=== PATIENT | female | born 1995 | race Caucasian/White ===

== ENCOUNTER 2018-05-06 05:53 | Day surgery (SDC) | payer MEDICAID ==
[2018-05-06] MEDS ORDERED: DIPRIVAN 200 MG/20 ML IV ONE (05:54)
[2018-05-06] MEDS ORDERED: Lactated Ringers 1,000 ML IV SCH (06:30)
[2018-05-06 07:53] VITALS: BP 115/69; PULSE 87; O2SAT 98
--- NOTE | 2018-05-06 07:55 | OP ---
SURGERY DATE/TIME: 05/06/2018 0700 PREOPERATIVE DIAGNOSIS: Epigastric abdominal pain. POSTOPERATIVE DIAGNOSIS: Suspect delayed gastric emptying. PROCEDURE: EGD. SURGEON: David Cross M.D. ANESTHESIA: MAC by Osmany Coffey CRNA. ESTIMATED BLOOD LOSS: None. SPECIMENS: None. DESCRIPTION OF PROCEDURE: After informed written consent was obtained, the patient was taken to the endoscopy suite. She underwent monitored anesthesia and a bite block was inserted. The endoscope was inserted into the posterior oropharynx and under direct visualization the esophagus was traversed. The esophageal mucosa had a normal appearance free of lesions or defects. The gastroesophageal junction appeared normal upon entering the stomach. The gastric mucosa had a normal rugated appearance free of lesions or defect. There were retained food particles in the stomach. The pylorus was traversed and the first and second portions of the duodenum were within normal limits. There were no obvious ulcerations or evidence of inflammation. Upon withdrawal from the pylorus the patient began to wretch therefore the procedure was discontinued at that time. Upon withdrawal there were no obvious mucosal abnormalities. Suction was used and there were no obvious signs of aspiration or other abnormalities during the exam. I discussed the results with the patient's family to follow up with Dr. Burr in consideration for possible gastric emptying study.
== END 2018-05-06 08:04 | disposition home or self-care (01) ==
LOC: SDC 05:53
PROVIDERS: ATTEND Family Medicine
DX: K30 Functional dyspepsia (principal)
CPT/HCPCS: 84703; J2704

== ENCOUNTER 2021-03-21 21:35 | Emergency (ER) | payer OTHER ==
[2021-03-21] MEDS ORDERED: Augmentin 875-125 Tablet PO ONE (21:58)
[2021-03-21] MEDS ORDERED: TYLENOL 325 MG PO ONE (21:59)
[2021-03-21] MEDS ORDERED: TYLENOL 325 MG ONE (22:01)
[2021-03-21] MEDS ORDERED: Augmentin 875-125 Tablet ONE (22:01)
--- NOTE | 2021-03-21 22:02 | ERPHSYRPT ---
- History of Present Illness Time Seen by Provider: 03/21/21 21:40 Source: patient Exam Limitations: no limitations Patient Subjective Stated Complaint: rt ear pain and some sob and I feel stopped up Triage Nursing Assessment: pt c/o rt ear pain. Informed EMS that she felt a little sob with hx of asthma. O2 sats were 98% on EMS arrival but they gave albuterol tx in route. O2 sats 100% on rm air at this time. Pt c/o nose feeling stopped up. Pt is not in any distress at this time, lung clear, resp normal and unlabored. No cough noted. Physician History: Patient is a 25-year-old female presents to our ED via EMS for evaluation of right ear pain. Patient admits to history of otitis media which requires antibiotic therapy. Patient states she has a URI. She has nasal congestion. Patient also has a history of asthma and feels that her asthma was triggered by her URI. Patient felt somewhat short of breath prior to arrival. Patient has an inhaler at home but did not use it. Patient was treated with a DuoNeb in route. Patient shortness of breath resolved. No wheezing upon our exam today. Sats were normal. No fever. No trauma. No nausea or vomiting. No headache. No rash. Symptoms are mild to moderate in intensity. No specific worsening improving factors. Patient voices no other complaints or concerns at this time. Timing/Duration: today Severity: moderate Modifying Factors: Improves With: nothing Associated Symptoms: other (URI and mild shortness of breath.) Allergies/Adverse Reactions: Latex, Natural Rubber Adverse Reaction (Mild, Verified 03/21/21 21:47) Hives morphine Adverse Reaction (Mild, Verified 03/21/21 21:47) Hives Home Medications: Prazosin HCl 2 mg PO HS 05/01/18 [History] Propranolol HCl 20 mg [Inderal 20 MG] 20 mg PO BID 05/01/18 [History] Sertraline HCl [Zoloft] 50 mg PO DAILY 05/01/18 [History] Bumetanide 1 mg [Bumex 1 mg] 1 mg PO DAILY 03/21/21 [History] Levothyroxine Sodium [Levothyroxine] 25 mcg PO DAILY 03/21/21 [History] Hx Tetanus, Diphtheria Vaccination/Date Given: Yes Hx Influenza Vaccination/Date Given: No Hx Pneumococcal Vaccination/Date Given: No Immunizations Up to Date: Yes Travel Risk - International Travel Have you traveled outside of the country in past 3 weeks: No - Coronavirus Screening Are you exhibiting any of the following symptoms?: No Close contact with a COVID-19 positive Pt in past 14-21 Days: No - Vaccine Status Have you recieved a Covid-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: 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[employer] - Vaccination Dates Date of 2cond Vaccination (if applicable): 11/2020 - Review of Systems Constitutional: No Symptoms, No Fever, No Chills Eyes: No Symptoms Ears, Nose, & Throat: No Symptoms Respiratory: No Symptoms, No Cough, No Dyspnea Cardiac: No Symptoms, No Chest Pain, No Edema, No Syncope Abdominal/Gastrointestinal: No Symptoms, No Abdominal Pain, No Nausea, No Vomiting, No Diarrhea Genitourinary Symptoms: No Symptoms, No Dysuria Musculoskeletal: No Symptoms, No Back Pain, No Neck Pain Skin: No Symptoms, No Rash Neurological: No Symptoms, No Dizziness, No Focal Weakness, No Sensory Changes Psychological: No Symptoms Endocrine: No Symptoms Hematologic/Lymphatic: No Symptoms Immunological/Allergic: No Symptoms All Other Systems: Reviewed and Negative - Past Medical History Pertinent Past Medical History: Yes Neurological History: Migraines ENT History: No Pertinent History Cardiac History: No Pertinent History Respiratory History: No Pertinent History Endocrine Medical History: No Pertinent History Musculoskeletal History: No Pertinent History GI Medical History: Gallbladder Disease History: No Pertinent History Psycho-Social History: Depression Female Reproductive Disorders: No Pertinent History - Past Surgical History Past Surgical History: Yes Neuro Surgical History: No Pertinent History Cardiac: No Pertinent History Respiratory: No Pertinent History Gastrointestinal: Cholecystectomy Genitourinary: No Pertinent History Musculoskeletal: Other Female Surgical History: Section Other Surgical History: T&A, ear surgery. carpal tunnel - Social History Smoking Status: Never smoker Exposure to second hand smoke: Yes Alcohol Use: None Drug Use: none Patient Lives Alone: No Significant Family History: no pertinent family hx - Female History Hx Now: No - Nursing Vital Signs Nursing Vital Signs: Initial Vital Signs Temperature 99.3 F 03/21/21 21:37 Pulse Rate 110 H 03/21/21 21:37 Respiratory Rate 22 03/21/21 21:37 Blood Pressure 136/105 03/21/21 21:37 O2 Sat by Pulse Oximetry 100 03/21/21 21:37 Pain Scale Pain Intensity 10 - Physical Exam General Appearance: no apparent distress, alert Eye Exam: PERRL/EOMI, eyes nml inspection Ears, Nose, Throat Exam: normal ENT inspection, TMs normal, pharynx normal, moist mucous membranes, other (Right otitis media. TM is erythematous and slightly bulging. No ear drainage. No mastoid tenderness.) Neck Exam: normal inspection, non-tender, supple, full range of motion Respiratory Exam: normal breath sounds, lungs clear, airway intact, No respiratory distress Cardiovascular Exam: regular rate/rhythm, normal heart sounds, normal peripheral pulses Gastrointestinal/Abdomen Exam: soft, normal bowel sounds, No tenderness, No mass Back Exam: normal inspection, normal range of motion, No CVA tenderness, No vertebral tenderness Extremity Exam: normal inspection, normal range of motion, pelvis stable Neurologic Exam: alert, oriented x 3, cooperative, normal mood/affect, nml cerebellar function, nml station & gait, sensation nml, No motor deficits Skin Exam: normal color, warm, dry, No rash Lymphatic Exam: No adenopathy SpO2 Interpretation: normal SpO2: 100 O2 Delivery: Room Air - Course Nursing assessment & vital signs reviewed: Yes Ordered Tests: Medication Summary Discontinued Medications Generic Name Dose Route Start Last Admin Trade Name Oliver PRN Reason Stop Dose Admin Acetaminophen 975 mg 03/21/21 21:59 03/21/21 22:02 Acetaminophen 325 Mg Tablet PO 03/21/21 22:00 975 mg STAT ONE Administration Acetaminophen Confirm 03/21/21 22:01 Acetaminophen 325 Mg Tablet Administered 03/21/21 22:02 Dose 975 mg .ROUTE .STK-MED ONE Amoxicillin/Clavulanate Potassium 875 mg 03/21/21 21:58 03/21/21 22:02 Amox Tr/Potassium Clavulanate 875 Mg Tablet PO 03/21/21 21:59 875 mg STAT ONE Administration Amoxicillin/Clavulanate Potassium Confirm 03/21/21 22:01 Amox Tr/Potassium Clavulanate 875 Mg Tablet Administered 03/21/21 22:02 Dose 875 mg .ROUTE .STK-MED ONE - Progress Progress: improved Progress Note: Patient reassessed. She feels well. Patient received Tylenol states her pain is better. Patient may have experienced a slight asthma attack. However symptoms resolved after treatment with albuterol. A prescription for prednisone was forwarded to patient's pharmacy. No indication for breathing treatment here in our ED as patient was asymptomatic with normal saturations. Patient received a dose of Augmentin in our ED. A prescription for the same was forwarded to patient's pharmacy. Patient agrees to follow-up with her primary care doctor within 48 hours for reevaluation. She voices no other complaints at this time. No indication for imaging studies at this time. Portions of this note were created with voice recognition technology. There may be grammatical, spelling, punctuation or sound alike errors 03/21/21 22:13 Counseled pt/family regarding: diagnosis, need for follow-up - Departure Departure Disposition: Home Clinical Impression: URI (upper respiratory infection), Otitis media Condition: Stable Critical Care Time: No Referrals: CELE COPELAND [Primary Care Provider] - Follow up/PCP as directed Instructions: Viral Upper Respiratory Infection, Adult (DC), Serous Otitis Media (DC) Additional Instructions: Discharge/Care Plan MENSAHJOSUE PAUL was seen on 03/21/21 in the Emergency Room. The patient was counseled regarding Diagnosis,Lab results, Imaging studies, need for follow up and when to return to the Emergency Room. Prescriptions given: Discharge Note I have spoken with the patient and/or caregivers. I have explained the patient's condition, diagnosis and treatment plan based on the information available to me at this time. I have answered the patient's and/or caregiver's questions and addressed any concerns. The patient and/or caregivers have as good understanding of the patient's diagnosis, condition and treatment plan as can be expected at this point. The vital signs have been stable. The patient's condition is stable and appropriate for discharge from the emergency department. The patient will pursue further outpatient evaluation with the primary care physician or other designated or consulting physician as outlined in the discharge instructions. The patient and/or caregivers are agreeable to this plan of care and follow-up instructions have been explained in detail. The patient and/or caregivers have received these instruction. The patient/and or caregivers are aware that any significant change in condition or worsening of symptoms should prompt an immediate return to this or the closest emergency department or call 911. Prescriptions: Amox Tr/Potass Clav. 875 mg [Augmentin 875-125 Tablet] 875 mg PO BID 7 Days #14 tablet Prednisone 10 mg [Deltasone 10 mg] 40 mg PO DAILY 3 Days #12 tablet
== END 2021-03-21 22:15 | disposition home or self-care (01) ==
LOC: ED 21:35
DX: H66.91 Otitis media, unspecified, right ear (principal); J06.9 Acute upper respiratory infection, unspecified; R06.02 Shortness of breath
CPT/HCPCS: 36000; 99284; A9270-GY

== ENCOUNTER 2022-01-24 22:38 | Emergency (ER) | payer OTHER ==
--- NOTE | 2022-01-24 22:44 | ERPHSYRPT ---
- History of Present Illness Time Seen by Provider: 01/24/22 22:44 Source: patient Exam Limitations: no limitations Physician History: This is a morbidly obese 26-year-old female who has generalized poor dentition and complains of right posterior molar pain and dental fracture. Patient supposedly had a dental appointment today but could not secure transportation. Therefore she had to cancel the dental appointment and reschedule for different time. She has tried [id number] products without much help in controlling her pain. Patient states she can take [place] without any problems Timing/Duration: gradual onset, days (2) Severity: mild ENT Location: dental (To moderate) Prearrival Treatment: over the counter meds Modifying Factors: Improves With: nothing Associated Symptoms: tooth pain Allergies/Adverse Reactions: Latex, Natural Rubber Adverse Reaction (Mild, Verified 01/24/22 22:53) Hives morphine Adverse Reaction (Mild, Verified 01/24/22 22:53) Hives Home Medications: Prazosin HCl 2 mg PO HS 05/01/18 [History] Propranolol HCl [Inderal ] 20 mg PO BID 05/01/18 [History] Sertraline HCl [Zoloft] 50 mg PO DAILY 05/01/18 [History] Bumetanide 1 mg [Bumex 1 mg] 1 mg PO DAILY 03/21/21 [History] Levothyroxine Sodium [Levothyroxine] 25 mcg PO DAILY 03/21/21 [History] Hx Tetanus, Diphtheria Vaccination/Date Given: Yes Hx Influenza Vaccination/Date Given: No Hx Pneumococcal Vaccination/Date Given: No Travel Risk - International Travel Have you traveled outside of the country in past 3 weeks: No - Coronavirus Screening Are you exhibiting any of the following symptoms?: No Close contact with a COVID-19 positive Pt in past 14-21 Days: No - Vaccine Status Have you recieved a Covid-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: 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[employer] - Vaccination Dates Date of 2cond Vaccination (if applicable): 11/2020 - Review of Systems Constitutional: No Symptoms Eyes: No Symptoms Ears, Nose, & Throat: Other (Dental pain with dental fracture) Respiratory: No Symptoms Cardiac: No Symptoms Abdominal/Gastrointestinal: No Symptoms Genitourinary Symptoms: No Symptoms Musculoskeletal: No Symptoms Skin: No Symptoms Neurological: No Symptoms Psychological: No Symptoms Endocrine: No Symptoms Hematologic/Lymphatic: No Symptoms Immunological/Allergic: No Symptoms All Other Systems: Reviewed and Negative - Past Medical History Pertinent Past Medical History: Yes Neurological History: Migraines ENT History: No Pertinent History Cardiac History: No Pertinent History Respiratory History: No Pertinent History Endocrine Medical History: No Pertinent History Musculoskeletal History: No Pertinent History GI Medical History: Gallbladder Disease History: No Pertinent History Psycho-Social History: Depression Female Reproductive Disorders: No Pertinent History - Past Surgical History Past Surgical History: Yes Neuro Surgical History: No Pertinent History Cardiac: No Pertinent History Respiratory: No Pertinent History Gastrointestinal: Cholecystectomy Genitourinary: No Pertinent History Musculoskeletal: Other Female Surgical History: Section Other Surgical History: T&A, ear surgery. carpal tunnel - Social History Smoking Status: Never smoker Exposure to second hand smoke: Yes Alcohol Use: None Drug Use: none Patient Lives Alone: No Significant Family History: no pertinent family hx - Nursing Vital Signs Nursing Vital Signs: Initial Vital Signs Temperature 97.7 F 01/24/22 22:42 Pulse Rate 77 01/24/22 22:42 Respiratory Rate 18 01/24/22 22:42 Blood Pressure 156/104 01/24/22 22:42 O2 Sat by Pulse Oximetry 99 01/24/22 22:42 Pain Scale Pain Intensity 10 - Physical Exam General Appearance: no apparent distress, alert, anxiety, obese Eye Exam: bilateral eye: normal inspection, PERRL, EOMI Ear Exam: bilateral ear: auricle normal Nasal Exam: normal inspection Throat Exam: pharynx normal, dental tenderness (Right lower posterior molar pain with fracture) Neck Exam: normal inspection, non-tender, supple, full range of motion Cardiovascular/Respiratory Exam: chest non-tender, no respiratory distress Abdominal Exam: non-tender Neurologic Exam: alert, oriented x 3, cooperative, 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 driver II-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 nml as tested, normal mood/affect, nml cerebellar function, nml station & gait, sensation nml Skin Exam: normal color, warm, dry SpO2 Interpretation: normal O2 Delivery: Room Air - Course Nursing assessment & vital signs reviewed: Yes - Progress Progress: unchanged Counseled pt/family regarding: diagnosis, need for follow-up - Departure Departure Disposition: Home Clinical Impression: Pain due to dental caries Condition: Stable Critical Care Time: No Referrals: MICHAEL PUENTES [Primary Care Provider] - Follow up/PCP as directed Additional Instructions: Add ibuprofen 600 mg orally with food 3 times a day. Call your dentist tomorrow, 01/25/2022, to make another appointment for definitive care. Take your antibiotics as prescribed. Prescriptions: Amoxicillin 500 mg Cap [Amoxil 500 mg] 500 mg PO TID #30 cap
[2022-01-24] MEDS ORDERED: NORCO 5/325 MG PO ONE (23:00)
[2022-01-24] MEDS ORDERED: AMOXIL 500 MG PO ONE (23:00)
[2022-01-24] MEDS ORDERED: AMOXIL 500 MG ONE (23:06)
[2022-01-24] MEDS ORDERED: NORCO 5/325 MG ONE (23:06)
[2022-01-24 23:32] VITALS: BP 131/81; PULSE 64; O2SAT 98
== END 2022-01-24 23:30 | disposition home or self-care (01) ==
LOC: ED 22:38
DX: K02.9 Dental caries, unspecified (principal); K08.89 Other specified disorders of teeth and supporting structures; Z79.899 Other long term (current) drug therapy
CPT/HCPCS: 99281; A9270-GY

== ENCOUNTER 2022-02-23 17:04 | Emergency (ER) | payer OTHER ==
--- NOTE | 2022-02-23 17:16 | ERPHSYRPT ---
- History of Present Illness Time Seen by Provider: 02/23/22 17:16 Source: patient Exam Limitations: no limitations Physician History: This is a morbidly obese 26-year-old female who has chronic poor dentition and states that yesterday evening she has pain in the area of a fractured tooth in the right lower molar region. She feels as though her right side of her jaw is swollen. She has not had a fever. She states that she cannot see a dentist until April 2022. Timing/Duration: gradual onset Severity: mild ENT Location: dental (To moderate) Prearrival Treatment: over the counter meds Modifying Factors: Improves With: other (Chewing worsens) Associated Symptoms: tooth pain (Right lower molars) Allergies/Adverse Reactions: Latex, Natural Rubber Adverse Reaction (Mild, Verified 01/24/22 22:53) Hives morphine Adverse Reaction (Mild, Verified 01/24/22 22:53) Hives Home Medications: Prazosin HCl 2 mg PO HS 05/01/18 [History] Propranolol HCl [Inderal ] 20 mg PO BID 05/01/18 [History] Sertraline HCl [Zoloft] 50 mg PO DAILY 05/01/18 [History] Bumetanide 1 mg [Bumex 1 mg] 1 mg PO DAILY 03/21/21 [History] Levothyroxine Sodium [Levothyroxine] 25 mcg PO DAILY 03/21/21 [History] Hx Tetanus, Diphtheria Vaccination/Date Given: Yes Hx Influenza Vaccination/Date Given: No Hx Pneumococcal Vaccination/Date Given: No Travel Risk - International Travel Have you traveled outside of the country in past 3 weeks: No - Coronavirus Screening Are you exhibiting any of the following symptoms?: No Close contact with a COVID-19 positive Pt in past 14-21 Days: No - Vaccine Status Have you recieved a Covid-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: 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[employer] - Vaccination Dates Date of 2cond Vaccination (if applicable): 11/2020 - Review of Systems Constitutional: No Symptoms Eyes: No Symptoms Ears, Nose, & Throat: Other (Dental pain) Respiratory: No Symptoms Cardiac: No Symptoms Abdominal/Gastrointestinal: No Symptoms Genitourinary Symptoms: No Symptoms Musculoskeletal: No Symptoms Skin: No Symptoms Neurological: No Symptoms Psychological: No Symptoms Endocrine: No Symptoms Hematologic/Lymphatic: No Symptoms Immunological/Allergic: No Symptoms All Other Systems: Reviewed and Negative - Past Medical History Pertinent Past Medical History: Yes Neurological History: Migraines ENT History: No Pertinent History Cardiac History: No Pertinent History Respiratory History: No Pertinent History Endocrine Medical History: No Pertinent History Musculoskeletal History: No Pertinent History GI Medical History: Gallbladder Disease History: No Pertinent History Psycho-Social History: Depression Female Reproductive Disorders: No Pertinent History - Past Surgical History Past Surgical History: Yes Neuro Surgical History: No Pertinent History Cardiac: No Pertinent History Respiratory: No Pertinent History Gastrointestinal: Cholecystectomy Genitourinary: No Pertinent History Musculoskeletal: Other Female Surgical History: Section Other Surgical History: T&A, ear surgery. carpal tunnel - Social History Smoking Status: Never smoker Exposure to second hand smoke: Yes Alcohol Use: None Drug Use: none Patient Lives Alone: No Significant Family History: no pertinent family hx - Nursing Vital Signs Nursing Vital Signs: Initial Vital Signs Temperature 97.5 F 02/23/22 17:16 Pulse Rate 83 02/23/22 17:16 Respiratory Rate 20 02/23/22 17:16 Blood Pressure 171/99 02/23/22 17:16 O2 Sat by Pulse Oximetry 98 02/23/22 17:16 Pain Scale Pain Intensity 10 - Physical Exam General Appearance: no apparent distress, alert, anxiety, obese Eye Exam: bilateral eye: normal inspection, PERRL, EOMI Ear Exam: bilateral ear: auricle normal Nasal Exam: normal inspection Throat Exam: dental tenderness (Right lower molars with molar fractures. There is generalized poor dentition), moist mucus membranes Neck Exam: normal inspection, non-tender, supple, full range of motion Cardiovascular/Respiratory Exam: chest non-tender, no respiratory distress Abdominal Exam: non-tender Neurologic Exam: alert, oriented x 3, cooperative, paint pourer II-XII nml as tested, normal mood/affect, nml cerebellar function, nml station & gait, sensation nml Skin Exam: normal color, warm, dry SpO2 Interpretation: normal O2 Delivery: Room Air - Course Nursing assessment & vital signs reviewed: Yes Ordered Tests: Medication Summary Discontinued Medications Generic Name Dose Route Start Last Admin Trade Name Freq PRN Reason Stop Dose Admin Hydrocodone Bitart/Acetaminophen 2 tab 02/23/22 17:53 Hydrocodone/Apap 5/325 1 Tab Tablet PO 02/23/22 17:54 SENT HOME W/ PATIENT ONE Amoxicillin 500 mg 02/23/22 17:53 Amoxicillin Trihydrate 500 Mg Capsule PO 02/23/22 17:54 STAT ONE - Progress Progress: unchanged Counseled pt/family regarding: diagnosis, need for follow-up - Departure Departure Disposition: Home Clinical Impression: Pain due to dental caries Condition: Stable Critical Care Time: No Referrals: MICHAEL PUENTES [Primary Care Provider] - Follow up/PCP as directed Additional Instructions: Call your dentist on 02/25/2022 to make arrangements for an earlier appointment. Follow-up with a dentist for definitive care. Use [id number] Tylenol and ibuprofen for pain control. Prescriptions: Amoxicillin 500 mg Cap [Amoxil 500 mg] 500 mg PO TID #30 cap
[2022-02-23 17:20] VITALS: BP 171/99; PULSE 83; O2SAT 98
[2022-02-23] MEDS ORDERED: NORCO 5/325 MG PO ONE (17:53)
[2022-02-23] MEDS ORDERED: AMOXIL 500 MG PO ONE (17:53)
[2022-02-23] MEDS ORDERED: NORCO 5/325 MG ONE (17:57)
[2022-02-23] MEDS ORDERED: AMOXIL 500 MG ONE (17:57)
== END 2022-02-23 18:08 | disposition home or self-care (01) ==
LOC: ED 17:04
DX: K02.9 Dental caries, unspecified (principal); K08.89 Other specified disorders of teeth and supporting structures; Z79.899 Other long term (current) drug therapy
CPT/HCPCS: 99281; A9270-GY

== ENCOUNTER 2023-05-07 14:25 | Emergency (ER) | payer OTHER ==
[2023-05-07 14:44] VITALS: TEMP 96.3; O2SAT 98
--- NOTE | 2023-05-07 15:03 | ERPHSYRPT ---
- History of Present Illness Time Seen by Provider: 05/07/23 14:50 Source: patient, EMS Patient Subjective Stated Complaint: C/O right leg pain since yesterday morning. She denies fall or injury. States she just woke up yesterday morning with the pain. Triage Nursing Assessment: Patient arrived by ambulance. She is alert and oriented. NO SOB. Patient pointing and rubbing her right knee when asked to show this nurse where the pain is located. Anteroir part of knee with some green discoloration; patient states this is from biofreeze. No swelling, warmth, or redness noted. Pedal pulse present to right foot. 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 Patient's primary complaint is pain in her right knee as well as the back of her knee and right calf. Patient denies any acute fall or injury. The pain came on suddenly yesterday (05/06/2023) morning. She denies chest pain. She denies hemoptysis, she denies shortness of breath. Patient denies bleeding or clotting disorders. Patient states that she is having difficulty bearing weight Method of Injury: other (No known injury) Occurred: yesterday Quality: constant, aching Severity of Pain-Max: mild (To moderate) Severity of Pain-Current: mild (To moderate) Lower Extremities Pain: knee: right Modifying Factors: Improves With: movement Associated Symptoms: other (Hurts to bear weight) Allergies/Adverse Reactions: Latex, Natural Rubber Adverse Reaction (Mild, Verified 05/07/23 14:27) Hives morphine Adverse Reaction (Mild, Verified 05/07/23 14:27) Hives Home Medications: Prazosin HCl 2 mg PO HS 05/01/18 [History] Propranolol HCl [Inderal ] 20 mg PO BID 05/01/18 [History] Sertraline HCl [Zoloft] 50 mg PO DAILY 05/01/18 [History] Bumetanide 1 mg [Bumex 1 mg] 1 mg PO DAILY 03/21/21 [History] Levothyroxine Sodium [Levothyroxine] 50 mcg PO DAILY 03/21/21 [History] Pravastatin Sodium 1 tab PO DAILY 05/07/23 [History] Tirzepatide [Mounjaro] 15 mg SQ WEEKLY 05/07/23 [History] lisinopriL [Zestril] 1 tab PO DAILY 05/07/23 [History] Hx Tetanus, Diphtheria Vaccination/Date Given: Yes Hx Influenza Vaccination/Date Given: No Hx Pneumococcal Vaccination/Date Given: No Immunizations Up to Date: Yes Travel Risk - International Travel Have you traveled outside of the country in past 3 weeks: No - Coronavirus Screening Are you exhibiting any of the following symptoms?: No Close contact with a COVID-19 positive Pt in past 14-21 Days: No - Vaccine Status Have you recieved a Covid-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: No 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 Right posterior calf) Neurological: No Symptoms Psychological: No Symptoms Endocrine: No Symptoms Hematologic/Lymphatic: No Symptoms Immunological/Allergic: No Symptoms All Other Systems: Reviewed and Negative - Past Medical History Pertinent Past Medical History: Yes Neurological History: Migraines ENT History: No Pertinent History Cardiac History: High Cholesterol, Hypertension Respiratory History: No Pertinent History Endocrine Medical History: Diabetes Type II, Hypothyroidism Musculoskeletal History: No Pertinent History GI Medical History: GERD, Gallbladder Disease History: No Pertinent History Psycho-Social History: Depression Female Reproductive Disorders: No Pertinent History - Past Surgical History Past Surgical History: Yes Neuro Surgical History: No Pertinent History Cardiac: No Pertinent History Respiratory: No Pertinent History Gastrointestinal: Cholecystectomy Genitourinary: No Pertinent History Musculoskeletal: Other Female Surgical History: Section Other Surgical History: ear surgery, carpal tunnel - Social History Smoking Status: Never smoker Exposure to second hand smoke: Yes Alcohol Use: None Drug Use: none Patient Lives Alone: No Significant Family History: no pertinent family hx - Female History Hx Last Menstrual Period: irregular; didn't have one last month Hx Now: No - Nursing Vital Signs Nursing Vital Signs: Initial Vital Signs Temperature 96.3 F 05/07/23 14:26 Pulse Rate 94 H 05/07/23 14:26 Respiratory Rate 19 05/07/23 14:26 Blood Pressure 125/73 05/07/23 14:26 O2 Sat by Pulse Oximetry 98 05/07/23 14:26 Pain Scale Pain Intensity 9 - Physical Exam General Appearance: no apparent distress, alert, anxiety, obese Eyes, Ears, Nose, Throat Exam: normal ENT inspection, moist mucous membranes Neck Exam: normal inspection, non-tender, supple, full range of motion Cardiovascular/Respiratory Exam: chest non-tender, no respiratory distress Gastrointestinal/Abdominal Exam: non-tender Back Exam: normal inspection, normal range of motion, No CVA tenderness, No vertebral tenderness Hips Exam: bilateral: non-tender, normal inspection, normal range of motion, no evidence of injury Legs Exam: bilateral leg: non-tender, normal inspection, normal range of motion, no evidence of injury Knees Exam: right knee: ecchymosis (Right anterior knee), soft tissue tenderness (Right anterior knee, popliteal fossa region), left knee: non-tender, normal inspection, normal range of motion, no evidence of injury Ankle Exam: bilateral ankle: non-tender, normal inspection, normal range of motion, no evidence of injury Foot Exam: bilateral foot: non-tender, normal inspection, normal range of motion, no evidence of injury Neuro/Tendon Exam: normal sensation, normal motor functions, normal tendon functions, responds to pain, no evidence tendon injury Mental Status Exam: alert, oriented x 3, cooperative Skin Exam: warm, dry, ecchymosis (Mild ecchymosis right anterior knee) SpO2 Interpretation: normal SpO2: 98 O2 Delivery: Room Air - Course Nursing assessment & vital signs reviewed: Yes Ordered Tests: Active Orders 24 hr Category Date Time Status KNEE (3 VIEWS) Stat Exams 05/07/23 15:02 Completed VENOUS UNILAT/LIMITED EXTREMIT [US] Stat Exams 05/07/23 15:03 Taken - Progress Progress Note: 05/07/23 15:26 This patient's medical issue is 1 of low complexity. Level complexity in the workup performed is based on review of the patient's past medical history, review the patient's medication list, review the patient's drug allergy list, history of present illness and physical findings on examination. The workup in this patient does not require any laboratory studies. However we will obtain a venous Doppler of the right lower extremity to evaluate for DVT. In addition, we will order a 3 view of the patient's right knee. 05/07/23 15:47 The venous Doppler of the right lower extremity results were reported to me by the engineering technologist. It is negative for DVT. X-ray of the right knee was interpreted by the radiologist and I reviewed the impression. The impression states that when compared to the x-ray done in 2016, there is worsening degenerative changes. There is no evidence of acute fracture or dislocation. Counseled pt/family regarding: diagnosis, need for follow-up, rad results Medical Desision Making - Diagnostic Testing Diagnostic test were ordered, analyzed, and reviewed by me: Yes Radiological Interpretation: Reviewed by me, Teleradiologist Report - Risk of complications The pt has a mod risk of morbidity or mortality based on: Need for prescription drug management - Departure Departure Disposition: Home Clinical Impression: Right knee pain Condition: Stable Critical Care Time: No Referrals: MICHAEL PUENTES [Primary Care Provider] - Follow up/PCP as directed Additional Instructions: Take ibuprofen and Tylenol for pain control. Ice pack to tender area 3 times a day for the next 48 hours. Follow-up in the [facility] orthopedic clinic. It is a Friday through Friday 8 AM to 10 AM clinic you do not need to have an appointment to be seen. Make sure you there between 8 AM and 9 AM. Call your primary care doctor tomorrow, 05/08/2023, to make arranges for follow-up appointment the next 5 days.
--- NOTE | 2023-05-07 15:24 | XRAY ---
Indication: Pain. No known injury. Comparison: October 18, 2015 3 view right knee demonstrates progressive worsening moderate tricompartmental degenerative changes greatest medial compartment. No other bony, articular, or soft tissue abnormalities.
[2023-05-07 15:37] VITALS: RESP 20
[2023-05-07 16:03] VITALS: BP 116/68; PULSE 88
--- NOTE | 2023-05-07 16:42 | XRAY ---
Indication: Popliteal fossa/calf pain. Two-dimensional sonogram and color Doppler imaging major venous vessels right leg performed. Comparison: None Medical Voucher Clerk notes technically difficult exam due to patient body habitus. No thrombus seen in the examined deep venous vessels of the right leg including greater saphenous vein. Veins demonstrate normal compressibility. Venous waveforms are normal with and without augmentation. Impression: Right leg grossly negative for DVT.
== END 2023-05-07 16:06 | disposition home or self-care (01) ==
LOC: ED 14:25
DX: M25.561 Pain in right knee (principal); M79.661 Pain in right lower leg; E78.5 Hyperlipidemia, unspecified; I10 Essential (primary) hypertension; E11.9 Type 2 diabetes mellitus without complications; Z79.85 Long-term (current) use of injectable non-insulin antidiabetic drugs; Z79.899 Other long term (current) drug therapy
CPT/HCPCS: 73562; 93971; 99283

== ENCOUNTER 2023-06-20 17:00 | Emergency (ER) | payer OTHER ==
[2023-06-20 17:23] VITALS: O2SAT 100
--- NOTE | 2023-06-20 17:31 | ERPHSYRPT ---
- History of Present Illness Source: patient, EMS Exam Limitations: no limitations Patient Subjective Stated Complaint: Patient c/o sore throat and back ache since 0430 today. Triage Nursing Assessment: Patient arrived by ambulance. She is alert and oriented. No SOB. No cough. REZA WNL. Patient able to stand up off of ambulance cot and transfer self to the ER bed. Face is flushed. Physician History: 28-year-old female with chief complaint of cough, coryza, sore throat, and myalgias starting at 430 this morning. Patient was brought into ER by ambulance. She denies fever. Patient arrived tachycardic but in no apparent distress. Timing/Duration: abrupt onset (430 this morning) Severity: moderate ENT Location: throat Prearrival Treatment: no prearrival treatment Modifying Factors: Improves With: coughing Associated Symptoms: denies symptoms Allergies/Adverse Reactions: Latex, Natural Rubber Adverse Reaction (Mild, Verified 06/20/23 17:05) Hives morphine Adverse Reaction (Mild, Verified 06/20/23 17:05) Hives Home Medications: Prazosin HCl 2 mg PO HS 05/01/18 [History] Propranolol HCl [Inderal ] 20 mg PO BID PRN 05/01/18 [History] Sertraline HCl [Zoloft] 50 mg PO DAILY 05/01/18 [History] Bumetanide 1 mg [Bumex 1 mg] 1 mg PO DAILY 03/21/21 [History] Levothyroxine Sodium [Levothyroxine] 50 mcg PO DAILY 03/21/21 [History] Pravastatin Sodium 1 tab PO DAILY 05/07/23 [History] Tirzepatide [Mounjaro] 15 mg SQ WEEKLY 05/07/23 [History] lisinopriL [Zestril] 1 tab PO DAILY 05/07/23 [History] Hx Tetanus, Diphtheria Vaccination/Date Given: Yes Hx Influenza Vaccination/Date Given: No Hx Pneumococcal Vaccination/Date Given: No Immunizations Up to Date: Yes Travel Risk - International Travel Have you traveled outside of the country in past 3 weeks: No - Coronavirus Screening Are you exhibiting any of the following symptoms?: Yes Symptoms: Headaches/Body Aches/Fatigue Close contact with a COVID-19 positive Pt in past 14-21 Days: No - Vaccine Status Have you recieved a Covid-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: No Set Up Inspector: Pfizer - Vaccination Dates Date of 2cond Vaccination (if applicable): 11/2020 - Review of Systems Constitutional: No Symptoms, Chills, Malaise Eyes: No Symptoms Ears, Nose, & Throat: No Symptoms Respiratory: No Symptoms, Cough Cardiac: No Symptoms Abdominal/Gastrointestinal: No Symptoms Genitourinary Symptoms: No Symptoms Musculoskeletal: No Symptoms, Myalgias Skin: No Symptoms Neurological: No Symptoms Psychological: No Symptoms Endocrine: No Symptoms Hematologic/Lymphatic: No Symptoms Immunological/Allergic: No Symptoms - Past Medical History Pertinent Past Medical History: Yes Neurological History: Migraines ENT History: No Pertinent History Cardiac History: High Cholesterol, Hypertension Respiratory History: No Pertinent History Endocrine Medical History: Diabetes Type II, Hypothyroidism Musculoskeletal History: No Pertinent History GI Medical History: GERD, Gallbladder Disease History: No Pertinent History Psycho-Social History: Depression Female Reproductive Disorders: No Pertinent History Other Medical History: night terrors - Past Surgical History Past Surgical History: Yes Neuro Surgical History: No Pertinent History Cardiac: No Pertinent History Respiratory: No Pertinent History Gastrointestinal: Cholecystectomy Genitourinary: No Pertinent History Musculoskeletal: Other Female Surgical History: Section Other Surgical History: ear surgery, carpal tunnel - Social History Smoking Status: Never smoker Exposure to second hand smoke: Yes Alcohol Use: None Drug Use: none Patient Lives Alone: No Significant Family History: no pertinent family hx - Female History Hx Last Menstrual Period: Just got of it yesterday Hx Now: No - Nursing Vital Signs Nursing Vital Signs: Initial Vital Signs Pulse Rate 121 H 06/20/23 17:05 Respiratory Rate 15 06/20/23 17:05 Blood Pressure 129/93 06/20/23 17:05 O2 Sat by Pulse Oximetry 100 06/20/23 17:05 Pain Scale Pain Intensity 9 Tachycardic - Physical Exam General Appearance: no apparent distress Eye Exam: bilateral eye: normal inspection, PERRL, EOMI Ear Exam: bilateral ear: auricle normal, canal normal, TM normal Nasal Exam: normal inspection Throat Exam: normal, pharynx normal Neck Exam: normal inspection, trachea midline Cardiovascular/Respiratory Exam: normal breath sounds, heart sounds normal, tachycardia Abdominal Exam: non-tender, soft (Morbidly obese) Neurologic Exam: alert, oriented x 3, cooperative, vehicle operator technician II-XII nml as tested, normal mood/affect, nml cerebellar function, nml station & gait, sensation nml Skin Exam: normal color, warm, dry SpO2 Interpretation: normal SpO2: 100 O2 Delivery: Room Air - Course Nursing assessment & vital signs reviewed: Yes EKG Interpreted by Me: RATE (Sinus tach/rate 135/normal QT-QTc/nonspecific ST segment changes most likely due to rate/artifact present/interpreted contemporaneously per ER physician) Ordered Tests: Medication Summary Generic Name Dose Route Start Last Admin Trade Name Freq PRN Reason Stop Dose Admin Sodium Chloride 1,000 mls @ 999 mls/hr 06/20/23 17:39 06/20/23 17:42 Sodium Chloride 0.9% 1000 Ml IV 06/20/23 18:39 999 mls/hr .[id number] STA Administration Discontinued Medications Generic Name Dose Route Start Last Admin Trade Name Freq PRN Reason Stop Dose Admin Sodium Chloride Confirm 06/20/23 17:41 Sodium Chloride 0.9% 1000 Ml Administered 06/20/23 17:42 Dose 1,000 mls @ ud .ROUTE .STK-MED ONE Ketorolac Tromethamine 30 mg 06/20/23 18:08 06/20/23 18:11 Ketorolac Tromethamine 30 Mg/Ml Inj IV 06/20/23 18:09 30 mg STAT ONE Administration Ketorolac Tromethamine Confirm 06/20/23 18:10 Ketorolac Tromethamine 30 Mg/Ml Inj Administered 06/20/23 18:11 Dose 30 mg .ROUTE .STK-MED ONE Penicillin G Benzathine 1.2 mu 06/20/23 18:05 06/20/23 18:13 Penicillin G Benzathine 1.2 Mu/2 Ml Syringe IM 06/20/23 18:06 1.2 mu STAT ONE Administration Penicillin G Benzathine Confirm 06/20/23 18:08 Penicillin G Benzathine 1.2 Mu/2 Ml Syringe Administered 06/20/23 18:09 Dose 1.2 mu IM .STK-MED ONE Lab/Rad Data: Laboratory Results 06/20/23 Range/Units 17:18 Influenza Type A Ag NEGATIVE (NEGATIVE) Influenza Type B Ag NEGATIVE (NEGATIVE) RSV (PCR) NEGATIVE (NEGATIVE) SARS-CoV-2 (PCR) NEGATIVE (NEGATIVE) Group A Strep Antibody DETECTED (NEGATIVE) - Progress Progress: improved Progress Note: 06/20/23 18:16 Nursing note and vital signs reviewed. No food or housing insecurity noted. All lab results reviewed and thoroughly shared with patient. Patient given 1,200,000 units IM pen G for her strep pharyngitis. Patient also given 30 g IV Toradol for pain. Before discharge patient states that she was put on Keflex today for sinus infection by her PCP which she failed to mention to my nurse and myself upon initial triage, history and physical. Patient discharged in stable condition with PCP follow-up recommended early next week and also told to continue her Keflex. Patient with a great airway during her entire ER visit, and there is no evidence of peritonsillar abscess or airway obstruction during her entire visit. Counseled pt/family regarding: lab results, diagnosis, need for follow-up Medical Desision Making - Independent Historian Additional History obtained from: EMS - Diagnostic Testing Diagnostic test were ordered, analyzed, and reviewed by me: Yes - Risk of complications The pt has a mod risk of morbidity or mortality based on: Need for prescription drug management - Departure Departure Disposition: Home Clinical Impression: Strep pharyngitis Condition: Stable Critical Care Time: No Referrals: MICHAEL PUENTES [Primary Care Provider] - Follow up/PCP as directed Instructions: Strep Throat (DC) Additional Instructions: Fluids Motrin/Tylenol Continue with Keflex Follow-up with your family MD early next week Return to the ER as needed. Forms: Work/School Release Form
[2023-06-20] MEDS ORDERED: Sodium Chloride 0.9% 1000 ML 1,000 ML ONE (17:41)
[2023-06-20] MEDS: Sodium Chloride 0.9% 1000 ML 1,000 ML IV STA (17:42)
[2023-06-20 17:45] LABS: Group A Strep DETECTED (NEGATIVE)
[2023-06-20 17:59] LABS: INFLUENZA A NEGATIVE (NEGATIVE); INFLUENZA B NEGATIVE (NEGATIVE); RESPIRATORY SYNCTIAL VIRUS NEGATIVE (NEGATIVE); SARS-CoV-2 Xpert Express NEGATIVE (NEGATIVE)
[2023-06-20 18:02] VITALS: RESP 17; TEMP 98.6
[2023-06-20] MEDS ORDERED: Bicillin L-A 1.2 Mu/2ML SYRINGE IM ONE (18:08)
[2023-06-20] MEDS ORDERED: TORAdol 30 mg Injection ONE (18:10)
[2023-06-20] MEDS: TORAdol 30 mg Injection IV ONE (18:11)
[2023-06-20] MEDS: Bicillin L-A 1.2 Mu/2ML SYRINGE IM ONE (18:13)
[2023-06-20 18:41] VITALS: BP 113/58; PULSE 90
== END 2023-06-20 18:46 | disposition home or self-care (01) ==
LOC: ED 17:00
DX: J02.0 Streptococcal pharyngitis (principal); R05.1 Acute cough; M79.10 Myalgia, unspecified site; E78.5 Hyperlipidemia, unspecified; I10 Essential (primary) hypertension; E11.9 Type 2 diabetes mellitus without complications; Z79.85 Long-term (current) use of injectable non-insulin antidiabetic drugs; Z79.899 Other long term (current) drug therapy
CPT/HCPCS: 0241U; 36000; 87651; 96372; 96374; 99284; J0561; J1885

== ENCOUNTER 2024-03-21 17:16 | Emergency (ER) | payer OTHER ==
[2024-03-21 17:28] VITALS: TEMP 98.3
[2024-03-21 17:49] LABS: Absolute Neutrophil Ct (ANC) 6.35 x10^3/uL (1.56-6.13); BASOPHIL % 0.5 % (0.1-1.2); Basophil (Absolute #) 0.04 x10^3/uL (0.01-0.08); Eosinophil % 1.7 % (0.7-5.8); Eosinophil (Absolute #) 0.15 x10^3/uL (0.04-0.36); Hematocrit 32.2 % (34.1-44.9); Hemoglobin 10.3 g/dL (11.2-15.7); IMMATURE GRAN # 0.02 x10^3u/L (0.001-0.031); IMMATURE GRAN % 0.2 % (0.001-0.429); Lymphocyte (Absolute #) 1.89 x10^3/uL (1.18-3.74); Lymphocytes % 21.3 % (19.3-51.7); Mean Cell Volume 81.5 fL (79.4-94.8); Mean Corpuscular Hemoglobin 26.1 pg (25.6-32.2); Mean Platelet Volume 11.4 fL (9.4-12.3); Monocyte (Absolute #) 0.43 x10^3/uL (0.24-0.86); Monocytes % 4.8 % (4.7-12.5); Neutrophil % 71.5 % (34.0-71.1); Platelet Count 226 x10^3/uL (182-369); Red Blood Count 3.95 x10^6/uL (3.93-5.22); Red Cell Distribution Width 14.2 % (11.7-14.4); White Blood Count 8.9 x10^3/uL (3.98-10.04)
[2024-03-21 18:12] LABS: Appearance Clear (Clear); Bacteria None Seen /HPF (None Seen); Bilirubin Negative (Negative); Blood Negative (Negative); Epithelial Cells Few /HPF (None Seen); Glucose, Urine Negative (Negative); Hyaline Casts NONE SEEN /LPF (0-2); Ketones Negative (Negative); Leukocyte Esterase Negative (Negative); Nitrite Negative (Negative); Ph 6.5 (4.6-8.0); Protein,Urine Dip Negative (Negative); RBC 0-2 /HPF (0-5); Specific Gravity 1.025 (1.005-1.030)
[2024-03-21 18:14] LABS: ALKALINE PHOSPHATASE 92 U/L (38-126); ANION GAP 12.7 MEQ/L (5-15); BLOOD UREA NITROGEN 18 mg/dL (7-17); CHLORIDE 105 mmol/L (98-107); Calcium 9.4 mg/dL (8.4-10.2); Carbon Dioxide 24 mmol/L (22-30); Creatinine 1 0.82 mg/dL (0.52-1.04); EST GLOMERULAR FILTRATION RATE 98.6 ML/MIN; Glucose 109 mg/dL (74-106); MAGNESIUM 1.8 mg/dL (1.6-2.3); Potassium 3.8 mmol/L (3.5-5.1); SGOT/AST 25 U/L (14-36); SGPT/ALT 32 U/L (0-35); SODIUM 139 mmol/L (135-145); TROPONIN < 0.012 ng/mL (0.000-0.033)
--- NOTE | 2024-03-21 18:17 | ERPHSYRPT ---
- History of Present Illness Source: patient Exam Limitations: no limitations Patient Subjective Stated Complaint: right sided chest pain that radiates to the shoulder and back for today only and the right sided chest pain for 2 days Triage Nursing Assessment: Pt brought to the ER by EMS, tachycardic, rates pain as 9/10, pulses normal, skin n/w/d, obese, denies cardiac hx, diabetic, no difficulty breathing, denies N&V, doesn't appear to be in any distress Timing/Duration: day(s) (two days) Severity: moderate Associated Symptoms: denies symptoms Hx Tetanus, Diphtheria Vaccination/Date Given: Yes Hx Influenza Vaccination/Date Given: No Hx Pneumococcal Vaccination/Date Given: No <FAVIAN,MAURO - Last Filed: 03/21/24 18:44> <ARVIND MCCORD - Last Filed: 03/21/24 20:43> - History of Present Illness Time Seen by Provider: 03/21/24 18:14 Physician History: right sided chest pain that radiates to the shoulder and back for today only and the right sided chest pain for 2 days rates pain as 9/10, obese, denies cardiac hx, diabetic, no difficulty breathing, denies N&V, doesn't appear to be in any distress Patient is a 28-year-old female with significant past medical history of hypertension diabetes recent knee surgery started having a right side chest pain radiating to the shoulder and back started today. Patient has a right side chest pain for last 2 days. Patient denies any difficulty in breathing nausea vomiting headache shortness of breath. (FAVIAN,AMURO) Allergies/Adverse Reactions: Latex, Natural Rubber Adverse Reaction (Mild, Verified 03/21/24 17:28) Hives morphine Adverse Reaction (Mild, Verified 03/21/24 17:28) Hives Home Medications: Prazosin HCl 2 mg PO HS 05/01/18 [History] Propranolol HCl [Inderal ] 20 mg PO BID PRN 05/01/18 [History] Sertraline HCl [Zoloft] 50 mg PO DAILY 05/01/18 [History] Bumetanide 1 mg [Bumex 1 mg] 1 mg PO DAILY 03/21/21 [History] Levothyroxine Sodium [Levothyroxine] 50 mcg PO DAILY 03/21/21 [History] Pravastatin Sodium 10 mg PO DAILY 05/07/23 [History] Tirzepatide [Mounjaro] 15 mg SQ WEEKLY 05/07/23 [History] lisinopriL [Zestril] 2.5 mg PO DAILY 05/07/23 [History] Celecoxib [Celebrex] 200 mg PO DAILY 03/21/24 [History] Famotidine 20 mg [Pepcid 20 MG] 20 mg PO DAILY 03/21/24 [History] Gabapentin [Neurontin ] 300 mg PO BID 03/21/24 [History] Loratadine 10 mg [Claritin 10 mg] 10 mg PO DAILY 03/21/24 [History] Travel Risk - International Travel Have you traveled outside of the country in past 3 weeks: No - Emerging Infectious Disease Are you exhibiting symptoms associated with any current EIDs: No <FAVIAN,MAURO - Last Filed: 03/21/24 18:44> - Review of Systems Constitutional: No Fever, No Chills Eyes: No Symptoms Ears, Nose, & Throat: No Symptoms Respiratory: No Cough, No Dyspnea Cardiac: Chest Pain, No Edema, No Syncope Abdominal/Gastrointestinal: No Abdominal Pain, No Nausea, No Vomiting, No Diarrhea Genitourinary Symptoms: No Dysuria Musculoskeletal: No Back Pain, No Neck Pain Skin: No Rash Neurological: No Dizziness, No Focal Weakness, No Sensory Changes Psychological: No Symptoms Endocrine: No Symptoms All Other Systems: Reviewed and Negative <FAVIAN,MAURO - Last Filed: 03/21/24 18:44> - Past Medical History Pertinent Past Medical History: Yes Neurological History: Migraines ENT History: No Pertinent History Cardiac History: High Cholesterol, Hypertension Respiratory History: No Pertinent History Endocrine Medical History: Diabetes Type II, Hypothyroidism Musculoskeletal History: No Pertinent History GI Medical History: GERD, Gallbladder Disease History: No Pertinent History Psycho-Social History: Depression Female Reproductive Disorders: No Pertinent History Other Medical History: night terrors - Past Surgical History Past Surgical History: Yes Neuro Surgical History: No Pertinent History Cardiac: No Pertinent History Respiratory: No Pertinent History Gastrointestinal: Cholecystectomy Genitourinary: No Pertinent History Musculoskeletal: Other Female Surgical History: Section Other Surgical History: ear surgery, carpal tunnel Significant Family History: no pertinent family hx - Female History Hx Last Menstrual Period: end of Feb 2024 Hx Now: No - Social History Smoking Status: Never smoker Exposure to second hand smoke: Yes Alcohol Use: None Drug Use: none Patient Lives Alone: No - Social Determinants of Health Will the patient participate in the screening: Yes Do you worry about a steady place to live?: No Do you have any problems with any of the following?: No known problems In the past 12 months,have you had to go without utilities?: No Transportation Issues: No Has anyone in your support network made you feel unsafe?: No Have you or anyone in your house had to go without enough: No <FAVIAN,MAURO - Last Filed: 03/21/24 18:44> - Physical Exam General Appearance: no apparent distress, alert Eye Exam: PERRL/EOMI, eyes nml inspection Ears, Nose, Throat Exam: normal ENT inspection, TMs normal, pharynx normal, moist mucous membranes Neck Exam: normal inspection, non-tender, supple, full range of motion Respiratory Exam: normal breath sounds, lungs clear, No respiratory distress Cardiovascular Exam: regular rate/rhythm, normal heart sounds, normal peripheral pulses Gastrointestinal/Abdomen Exam: soft, normal bowel sounds, No tenderness, No mass Back Exam: normal inspection, normal range of motion, No CVA tenderness, No vertebral tenderness Extremity Exam: normal inspection, normal range of motion, pelvis stable Neurologic Exam: alert, oriented x 3, cooperative, normal mood/affect, nml cerebellar function, nml station & gait, sensation nml, No motor deficits Skin Exam: normal color, warm, dry, No rash Lymphatic Exam: No adenopathy SpO2: 100 <FAVIAN,MAURO - Last Filed: 03/21/24 18:44> - Nursing Vital Signs Nursing Vital Signs: Initial Vital Signs Temperature 98.3 F 03/21/24 17:18 Pulse Rate 101 H 03/21/24 17:18 Respiratory Rate 19 03/21/24 17:18 Blood Pressure 126/86 03/21/24 17:18 O2 Sat by Pulse Oximetry 100 03/21/24 17:18 Pain Scale Pain Intensity 8 - Course Nursing assessment & vital signs reviewed: Yes <FAVIAN,MAURO - Last Filed: 03/21/24 18:44> Ordered Tests: Active Orders 24 hr Category Date Time Status EKG-ER Only STAT Care 03/21/24 17:35 Active CHEST WITH CONTRAST [CT] Stat Exams 03/21/24 18:29 Completed VENOUS UNILAT/LIMITED EXTREMIT [US] Stat Exams 03/21/24 18:24 Taken CBC W DIFF Stat Lab 03/21/24 17:40 Completed CMP Stat Lab 03/21/24 17:40 Completed D-DIMER QUANTITATIVE Stat Lab 03/21/24 17:40 Completed Lactic Acid Stat Lab 03/21/24 17:30 Completed MAGNESIUM Stat Lab 03/21/24 17:40 Completed TROPONIN Stat Lab 03/21/24 17:40 Completed UA W/RFX UR CULTURE Stat Lab 03/21/24 17:57 Completed Lab/Rad Data: Laboratory Result Diagrams 03/21/24 17:40 03/21/24 17:40 Laboratory Results 03/21/24 03/21/24 03/21/24 Range/Units 17:57 17:40 17:40 WBC (3.98-10.04) x10^3/uL RBC (3.93-5.22) x10^6/uL Hgb (11.2-15.7) g/dL Hct (34.1-44.9) % MCV (79.4-94.8) fL MCH (25.6-32.2) pg MCHC (32.2-35.5) g/dL RDW (11.7-14.4) % Plt Count (182-369) x10^3/uL MPV (9.4-12.3) fL Gran % (34.0-71.1) % Immature Gran % (Auto) (0.001-0.429) % Nucleat RBC Rel Count (0.00-0.2) % Eos # (Auto) (0.04-0.36) x10^3/uL Immature Gran # (Auto) (0.001-0.031) x10^3u/L Absolute Lymphs (auto) (1.18-3.74) x10^3/uL Absolute Monos (auto) (0.24-0.86) x10^3/uL Absolute Nucleated RBC (0.00-0.012) x10^3u/L Lymphocytes % (19.3-51.7) % Monocytes % (4.7-12.5) % Eosinophils % (0.7-5.8) % Basophils % (0.1-1.2) % Absolute Granulocytes (1.56-6.13) x10^3/uL Basophils # (0.01-0.08) x10^3/uL D-Dimer 1.41 H* (0.0-0.50) mg/L Sodium 139 (135-145) mmol/L Potassium 3.8 (3.5-5.1) mmol/L Chloride 105 (98-107) mmol/L Carbon Dioxide 24 (22-30) mmol/L Anion Gap 12.7 (5-15) MEQ/L BUN 18 H (7-17) mg/dL Creatinine 0.82 (0.52-1.04) mg/dL Estimated GFR 98.6 ML/MIN Glucose 109 H (74-106) mg/dL Lactic Acid (0.4-2.0) Calcium 9.4 (8.4-10.2) mg/dL Magnesium 1.8 (1.6-2.3) mg/dL Total Bilirubin 0.30 (0.2-1.3) mg/dL AST 25 (14-36) U/L ALT 32 (0-35) U/L Alkaline Phosphatase 92 (38-126) U/L Troponin I < 0.012 (0.000-0.033) ng/mL Serum Total Protein 7.0 (6.3-8.2) g/dL Albumin 4.0 (3.5-5.0) g/dL Urine Color Yellow (Yellow) Urine Appearance Clear (Clear) Urine pH 6.5 (4.6-8.0) Ur Specific [place] 1.025 (1.005-1.030) Urine Protein Negative (Negative) Urine Glucose (UA) Negative (Negative) mg/dL Urine Ketones Negative (Negative) Urine Blood Negative (Negative) Urine Nitrite Negative (Negative) Urine Bilirubin Negative (Negative) Urine Urobilinogen 1.0 A (0.2) mg/dL Ur Leukocyte Esterase Negative (Negative) U Hyaline Cast (Auto) NONE SEEN (0-2) /LPF Urine Microscopic RBC 0-2 (0-5) /HPF Urine Microscopic WBC 3-5 (0-5) /HPF Ur Epithelial Cells Few (None Seen) /HPF Urine Bacteria None Seen (None Seen) /HPF Urine Culture Reflexed NO (NO) 03/21/24 03/21/24 Range/Units 17:40 17:30 WBC 8.9 (3.98-10.04) x10^3/uL RBC 3.95 (3.93-5.22) x10^6/uL Hgb 10.3 L (11.2-15.7) g/dL Hct 32.2 L (34.1-44.9) % MCV 81.5 (79.4-94.8) fL MCH 26.1 (25.6-32.2) pg MCHC 32.0 L (32.2-35.5) g/dL RDW 14.2 (11.7-14.4) % Plt Count 226 (182-369) x10^3/uL MPV 11.4 (9.4-12.3) fL Gran % 71.5 H (34.0-71.1) % Immature Gran % (Auto) 0.2 (0.001-0.429) % Nucleat RBC Rel Count 0.0 (0.00-0.2) % Eos # (Auto) 0.15 (0.04-0.36) x10^3/uL Immature Gran # (Auto) 0.02 (0.001-0.031) x10^3u/L Absolute Lymphs (auto) 1.89 (1.18-3.74) x10^3/uL Absolute Monos (auto) 0.43 (0.24-0.86) x10^3/uL Absolute Nucleated RBC 0.00 (0.00-0.012) x10^3u/L Lymphocytes % 21.3 (19.3-51.7) % Monocytes % 4.8 (4.7-12.5) % Eosinophils % 1.7 (0.7-5.8) % Basophils % 0.5 (0.1-1.2) % Absolute Granulocytes 6.35 H (1.56-6.13) x10^3/uL Basophils # 0.04 (0.01-0.08) x10^3/uL D-Dimer (0.0-0.50) mg/L Sodium (135-145) mmol/L Potassium (3.5-5.1) mmol/L Chloride (98-107) mmol/L Carbon Dioxide (22-30) mmol/L Anion Gap (5-15) MEQ/L BUN (7-17) mg/dL Creatinine (0.52-1.04) mg/dL Estimated GFR ML/MIN Glucose (74-106) mg/dL Lactic Acid 1.2 (0.4-2.0) Calcium (8.4-10.2) mg/dL Magnesium (1.6-2.3) mg/dL Total Bilirubin (0.2-1.3) mg/dL AST (14-36) U/L ALT (0-35) U/L Alkaline Phosphatase (38-126) U/L Troponin I (0.000-0.033) ng/mL Serum Total Protein (6.3-8.2) g/dL Albumin (3.5-5.0) g/dL Urine Color (Yellow) Urine Appearance (Clear) Urine pH (4.6-8.0) Ur Specific [place] (1.005-1.030) Urine Protein (Negative) Urine Glucose (UA) (Negative) mg/dL Urine Ketones (Negative) Urine Blood (Negative) Urine Nitrite (Negative) Urine Bilirubin (Negative) Urine Urobilinogen (0.2) mg/dL Ur Leukocyte Esterase (Negative) U Hyaline Cast (Auto) (0-2) /LPF Urine Microscopic RBC (0-5) /HPF Urine Microscopic WBC (0-5) /HPF Ur Epithelial Cells (None Seen) /HPF Urine Bacteria (None Seen) /HPF Urine Culture Reflexed (NO) - Progress Progress: unchanged <ARVIND MCCORD - Last Filed: 03/21/24 20:43> - Progress Progress Note: Patient was stable throughout stay. She got turned over to me. We were waiting on an ultrasound and a chest CT.Both of those were negative for any pathology. I spoke with the patient for a while it sounds like she just has pleurisy. She has some sharp pain in her right chest. It gets worse with deep breathing and movements. I am going to give her some anti-inflammatories for the pain. She can follow-up with her primary care doctor return if symptoms worsen. 03/21/24 20:41 (ARVIND MCCORD) Medical Desision Making - Independent Historian Additional History obtained from: Spouse - Social Determinants of Health Pt's dx & treatment plan are significantly limited by SDOH: Unemployed, limited education - Diagnostic Testing Diagnostic test were ordered, analyzed, and reviewed by me: Yes Radiological Interpretation: Reviewed by me - Risk of complications Minimal Risk: Minimal risk of morbidity <ARVIND MCCORD - Last Filed: 03/21/24 20:43> <MAURO BALLESTEROS - Last Filed: 03/21/24 18:44> - Departure Departure Disposition: Home Critical Care Time: No <ARVIND MCCORD - Last Filed: 03/21/24 20:43> - Departure Clinical Impression: Pleurisy Condition: Stable Referrals: MICHAEL PUENTES [Primary Care Provider] - Follow up/PCP as directed Instructions: Pleuritic Chest Pain ED
--- NOTE | 2024-03-21 19:51 | XRAY ---
CLINICAL HISTORY: right side chest pain, Elevated D D COMPARISON: None. TECHNIQUE: Contiguous 3.[address] images of the chest were acquired with the administration of intravenous contrast 100 cc Isovue 370 (PE protocol). Coronal and sagittal reconstructions were obtained. One of the following dose reduction techniques were utilized for this exam: Automated exposure control, adjustment of the mA and/or kV according to patient size, and use of iterative reconstruction. FINDINGS: Lungs: Lungs are clear with no evidence of consolidation, collapse, or focal lesions. No ground-glass opacities or interstitial changes. No pleural effusion or pleural thickening. Mediastinum: No mediastinal mass or abnormal lymphadenopathy. Normal appearance of the thymus. Hilar Structures: Normal size and configuration, no enlargement. Heart and Great Vessels: Normal heart size and configuration. No pericardial effusion. Normal caliber and course of the thoracic aorta and other great vessels. No significant atherosclerosis or aneurysm. Normal enhancement of the great vessels post-contrast. Pulmonary Arteries: No evidence of pulmonary embolism. Normal size and course of the pulmonary arteries. Esophagus: Normal course and caliber. No masses or dilatation. Bones: No fractures or lytic/sclerotic lesions. Normal bone density and alignment. No evidence of rib fractures. Chest Wall: No masses or soft tissue abnormalities. Upper Abdomen: Visualized portions of the liver, spleen, pancreas, adrenal glands, and kidneys are normal. Post-cholecystectomy status. Thyroid: Normal size and morphology. No nodules or masses. IMPRESSION: 1. No evidence of pulmonary embolism. 2. Normal CT of the chest with contrast. Electronically Signed by: Marita Humphrey MD. (03/21/2024 19:46:28 EST)
[2024-03-21] MEDS ORDERED: MOTRIN 600 MG ONE (20:52)
[2024-03-21] MEDS ORDERED: NORCO 5/325 MG ONE (20:52)
[2024-03-21] MEDS: NORCO 5/325 MG PO ONE (20:53)
[2024-03-21] MEDS: MOTRIN 600 MG PO ONE (20:53)
[2024-03-21 21:03] VITALS: BP 110/73; PULSE 101; RESP 15; O2SAT 97
--- NOTE | 2024-03-22 08:47 | XRAY ---
Indication: Elevated d-dimer. Two-dimensional sonogram and color Doppler imaging major venous vessels left leg performed. Comparison: None No thrombus seen in the examined deep venous vessels left leg including greater saphenous vein. Veins demonstrate normal compressibility. Venous waveforms are normal with and without augmentation. Impression: Left leg negative for DVT. Comment: Preliminary report was given.
== END 2024-03-21 21:11 | disposition home or self-care (01) ==
LOC: ED 17:16
DX: R09.1 Pleurisy (principal); Z79.899 Other long term (current) drug therapy
CPT/HCPCS: 36415; 71260; 80053; 81001; 83605; 83735; 84484; 85025; 85379; 93005; 93971; 99284; 99285; A9270-GY